=== PATIENT | female | born 1950 | race Two or more races ===

== ENCOUNTER 2023-09-13 14:10 | Emergency (ER) | payer OTHER ==
[~2023-09-13] VITALS: Ht 170.2 cm; Wt 163.6 kg
[2023-09-13 15:51] LABS: Eosinophils # (auto) 0.2 10 ^3/uL (0-0.8); Eosinophils % (auto) 2.7 % (0.0-7.0); Mean Corpuscular Hgb Conc. 31.9 g/dL (32.0-36.0); Mean Corpuscular Volume 81.5 fL (80.0-100.0); Monocytes # (auto) 0.6 10 ^3/uL (0-1.3); Monocytes % (auto) 6.8 % (0.0-12.0); White Blood Cell 8.9 10^3/uL (4.4-10.8)
[2023-09-13 15:52] LABS: Basophils # (auto) 0 10 ^3/uL (0-0.2); Basophils % (auto) 0.5 % (0.0-2.0); Hematocrit 39.4 % (36.0-46.0); Hemoglobin 12.6 g/dL (12.2-16.2); Lymphocytes # (auto) 1.3 10 ^3/uL (0.4-5.4); Lymphocytes % (auto) 15.1 % (10.0-50.0); Neutrophils # (auto) 6.7 10 ^3/uL (1.6-8.6); Neutrophils % (auto) 74.9 % (37.0-80.0); Nucleated Red Blood Cells % 0.3 %; Red Blood Cells 4.84 10^6/uL (4.0-5.20); Red Cell Distribution Width 19.8 % (11.8-14.3)
[2023-09-13 16:02] VITALS: PULSE 55; RESP 20; O2SAT 96
[2023-09-13 16:07] LABS: Alanine Aminotransferase 13 U/L (7-40); Albumin 3.1 g/dL (3.2-4.8); Alkaline Phosphatase 99 U/L (46-116); Aspartate Aminotransferase 24 U/L (13-40); Blood Urea Nitrogen 17 mg/dL (9-23); Chloride 106 mmol/L (98-107); Lipase 20 U/L (12-53); Potassium 3.5 mmol/L (3.5-5.1); Sodium 142 mmol/L (136-145)
[2023-09-13 16:08] LABS: Bilirubin, Total 0.6 mg/dL (0.2-1.0); Total Protein 5.9 g/dL (5.7-8.2)
[2023-09-13 16:09] LABS: Anion Gap 7 (5-15); Calcium 7.7 mg/dL (8.7-10.4); Carbon Dioxide 29 mmol/L (20-30)
[2023-09-13 16:14] LABS: BUN/Creatinine Ratio 27.4 (10.0-20.0); Glucose 100 mg/dL (74-106)
[2023-09-13] MEDS ORDERED: NYSTATIN TOPICAL POWDER 15GM TOP ONE (16:45)
[2023-09-13 17:28] LABS: Urine Bacteria FEW /hpf (None Seen); Urine Blood 3+ /uL (Negative); Urine Clarity CLOUDY (Clear); Urine Color Red (Yellow); Urine Mucus FEW (None Seen); Urine Protein, UAD 2+ (Negative); Urine Specific Gravity 1.019 (1.001-1.035); Urine Urobilinogen Normal (Negative); Urine WBC 453 /hpf (0 - 5); Urine WBC Clumps PRESENT /hpf (None Seen); Urine pH 6.5 (5.0-8.0)
[2023-09-13] MEDS ORDERED: levoFLOXacin 250 MG TAB PO ONE (18:45)
[2023-09-13 19:25] VITALS: PULSE 57; RESP 12; O2SAT 94
[2023-09-14 10:25] VITALS: BP 120/88; PULSE 60; RESP 16; TEMP 98.2; O2SAT 99
== END 2023-09-14 10:35 | disposition home or self-care (01) ==
LOC: ER 14:10 → EDBD 14:10 → ER 09-14 10:35
DX: T83.511A Infection and inflammatory reaction due to indwelling urethral catheter, initial encounter (principal); N39.0 Urinary tract infection, site not specified; Z88.1 Allergy status to other antibiotic agents; Z88.8 Allergy status to other drugs, medicaments and biological substances
CPT/HCPCS: 36415; 51702; 80053; 81001; 83605; 83690; 83880; 85025

== ENCOUNTER 2023-10-07 15:33 | Emergency (ER) | payer OTHER ==
[~2023-10-07] VITALS: Ht 177.8 cm; Wt 152.7 kg
[2023-10-07 17:11] LABS: COVID19 ANTIGEN SOFIA FIA NEGATIVE (NEGATIVE)
[2023-10-07] MEDS ORDERED: PIPERACILLIN-TAZOB 3.375GM 100 ML IV ONE (22:45)
[2023-10-07 23:22] LABS: Basophils # (auto) 0.1 10 ^3/uL (0-0.2); Hematocrit 37.2 % (36.0-46.0); Hemoglobin 11.9 g/dL (12.2-16.2); Mean Corpuscular Hgb Conc. 31.9 g/dL (32.0-36.0); Monocytes # (auto) 0.5 10 ^3/uL (0-1.3); Monocytes % (auto) 5.4 % (0.0-12.0); Red Cell Distribution Width 19.9 % (11.8-14.3); White Blood Cell 8.8 10^3/uL (4.4-10.8)
[2023-10-07 23:23] LABS: Basophils % (auto) 0.8 % (0.0-2.0); Eosinophils # (auto) 0.3 10 ^3/uL (0-0.8); Eosinophils % (auto) 3.1 % (0.0-7.0); Lymphocytes # (auto) 1.2 10 ^3/uL (0.4-5.4); Lymphocytes % (auto) 13.6 % (10.0-50.0); Mean Corpuscular Hemoglobin 26.1 pg (28.0-32.0); Mean Corpuscular Volume 81.9 fL (80.0-100.0); Neutrophils # (auto) 6.8 10 ^3/uL (1.6-8.6); Neutrophils % (auto) 77.1 % (37.0-80.0); Nucleated Red Blood Cells % 0.2 %; Red Blood Cells 4.55 10^6/uL (4.0-5.20)
[2023-10-07 23:36] LABS: INR 1.24 (0.9-1.15); Partial Thromboplastin Time 49.3 SEC (24.5-34.5); Prothrombin Time 12.8 sec (9.3-11.8)
[2023-10-07 23:40] LABS: Alkaline Phosphatase 95 U/L (46-116); Anion Gap 4 (5-15); Aspartate Aminotransferase 17 U/L (13-40); BUN/Creatinine Ratio 18.5 (10.0-20.0); Bilirubin, Total 0.5 mg/dL (0.2-1.0); Blood Urea Nitrogen 12 mg/dL (9-23); Calcium 8.1 mg/dL (8.7-10.4); Carbon Dioxide 35 mmol/L (20-30); Chloride 104 mmol/L (98-107); Glucose 113 mg/dL (74-106); Sodium 143 mmol/L (136-145); Total Protein 5.9 g/dL (5.7-8.2)
[2023-10-07 23:47] LABS: Alanine Aminotransferase 9 U/L (7-40)
[2023-10-07 23:49] LABS: Potassium 2.5 mmol/L (3.5-5.1)
[2023-10-08] MEDS ORDERED: POTASSIUM CHLORIDE 40 MEQ, LIDOCAINE 1% (LOCAL ANESTH.) 4 ML in SODIUM CHL 0.9% 250 ML IV ONE ×3
[2023-10-08] MEDS ORDERED: POTASSIUM CHL 20 Meq TABLET PO ONE
[2023-10-08 01:34] VITALS: PULSE 64; RESP 20; O2SAT 95
[2023-10-08] MEDS ORDERED: POTASSIUM CHL 20MEQ/100ML 100 ML IV ONE (04:57)
[2023-10-08] MEDS: POTASSIUM CHL 20MEQ/100ML 100 ML IV SCH ×2 (05:12→08:01)
[2023-10-08 08:00] VITALS: PULSE 64; RESP 12; O2SAT 98
[2023-10-08 10:39] VITALS: BP 125/54; PULSE 69; RESP 14; TEMP 97.8; O2SAT 96
== END 2023-10-08 03:04 | disposition short-term general hospital (02) ==
LOC: ER 15:33 → EDBD 15:33 → ER 10-08 03:04
DX: T83.018A Breakdown (mechanical) of other urinary catheter, initial encounter (principal); I10 Essential (primary) hypertension; E78.5 Hyperlipidemia, unspecified; Z98.890 Other specified postprocedural states; Z88.8 Allergy status to other drugs, medicaments and biological substances; Z20.822 Contact with and (suspected) exposure to COVID-19; Z86.2 Personal history of diseases of the blood and blood-forming organs and certain disorders involving the immune mechanism; Y92.89 Other specified places as the place of occurrence of the external cause
CPT/HCPCS: 36415; 71045; 80053; 83880; 84484; 85025; 85610; 85730; 87426; 96361; 96365; 96366; 99285; J2001; J2543; J3480; J7050